=== PATIENT | female | born 1945 | race Caucasian/White ===

== ENCOUNTER 2023-02-18 20:31 | Emergency (ER) | payer MEDICARE, OTHER ==
[2023-02-18] MEDS ORDERED: Ibuprofen 800 MG TAB ONE (20:45)
[2023-02-18] MEDS ORDERED: Lidocaine 1% (PF) 30 ML VIAL ONE (22:10)
== END 2023-02-18 23:00 | disposition home or self-care (01) ==
LOC: NAV ERS 20:31
DX: S52.501A Unspecified fracture of the lower end of right radius, initial encounter for closed fracture (principal); W18.2XXA Fall in (into) shower or empty bathtub, initial encounter; Y93.E1 Activity, personal bathing and showering; Y92.002 Bathroom of unspecified non-institutional (private) residence as the place of occurrence of the external cause
CPT/HCPCS: 25605; 99152; J2001

== ENCOUNTER 2024-06-28 04:48 | Emergency (ER) | payer MEDICARE, OTHER ==
[2024-06-28] MEDS ORDERED: Ipratropium/Albuterol 3 ML NEB ONE (04:54)
[2024-06-28] MEDS ORDERED: Albuterol 2.5 MG (3 mL) NEB ONE (05:16)
[2024-06-28 05:33] LABS: #Eosinophils 0.1 thou/uL (0.0-0.7); #Lymphocytes 1.3 thou/uL (1.20-3.40); #Monocytes 0.7 thou/uL (0.11-0.59); #Neutrophils 2.7 thou/uL (1.40-6.50); %Basophils 0.9 % (0.0-1.0); %Eosinophils 1.2 % (0.0-10.0); %Lymphocytes 27.6 % (21.0-51.0); %Monocytes 14.2 % (0.0-10.0); %Neutrophils 56.1 % (42.0-75.0); Hematocrit 42.4 % (36.0-47.0); Hemoglobin 14.1 g/dL (12.0-16.0); Mean Corpuscular HGB CONC 33.3 g/dL (32.0-36.0); Mean Corpuscular Hemoglobin 30.8 pg (27.0-31.0); Mean Corpuscular Volume 92.3 fl (78.0-98.0); Mean Platelet Volume 8.3 fL (7.4-10.4); Platelet Count 205 10x3/uL (130-400); RBC Distribution Width 11.2 % (11.5-14.5); White Blood Cell (WBC) Count 4.7 10x3/uL (4.8-10.8)
[2024-06-28] MEDS ORDERED: Magnesium 2 GM/50 ML BAG (IN WATER) ONE (05:34)
[2024-06-28] MEDS ORDERED: Dexamethasone 10 MG/ML VIAL ONE (05:34)
[2024-06-28] MEDS ORDERED: Sodium Chloride 0.9% 1,000 ML ONE (05:34)
[2024-06-28 05:52] LABS: ALT (SGPT) 73 U/L (Less than 34); Albumin 3.8 g/dL (3.1-4.5); Alkaline Phosphatase 75 U/L (40-110); Anion Gap 15 mmol/L (10-20); BUN (Urea Nitrogen) 8 mg/dL (9.8-20.1); Bilirubin, Total 0.5 mg/dL (0.3-1.2); Calc. Creatinine Clearance 0 mL/min (70-130); Calcium 9.3 mg/dL (7.8-10.44); Carbon Dioxide 23 mmol/L (23-31); Estimated GFR 93; Globulin 3.8 g/dL (2.4-3.5); Glucose 99 mg/dL (83-110); Protein, Total 7.6 g/dL (5.8-8.1); Sodium 136 mmol/L (136-145); Troponin I Less than 0.010 ng/mL (< 0.028)
[2024-06-28 05:59] LABS: AST (SGOT) 88 U/L (11-34); Chloride 103 mmol/L (98-107); Potassium 4.8 mmol/L (3.5-5.1)
[2024-06-28] MEDS ORDERED: Albuterol 200 PUFF (6.7GM INHALER) ONE (06:25)
== END 2024-06-28 06:41 | disposition home or self-care (01) ==
LOC: NAV ERS 04:48
DX: J45.909 Unspecified asthma, uncomplicated (principal); Z55.6 Problems related to health literacy
CPT/HCPCS: 71045; 80053; 84484; 85025; 87428; 93005; 94760; J1100; J3475; J7030; 96365; 96375; J7611; J7620